=== PATIENT | male | born 1995 | race Caucasian/White ===

== ENCOUNTER 2017-04-07 08:18 | Emergency (ER) | payer SELFPAY ==
--- NOTE | 2017-04-07 08:42 | EDM.PDOC ---
ED HPI GENERAL MEDICAL PROBLEM - General Chief Complaint: Skin Complaint Stated Complaint: SORE IN BETWEEN BUTT CHECK - LEFT Time Seen by Provider: 04/07/17 08:42 Source of Information: Reports: Patient - History of Present Illness INITIAL COMMENTS - FREE TEXT/NARRATIVE: HISTORY AND PHYSICAL: History of present illness: []Patient presents with perirectal abscess on the left buttock, lesion was draining on its own on arrival, no fever nausea vomiting chills sweats Review of systems: As per history of present illness and below otherwise all systems reviewed and negative. Past medical history: As per history of present illness and as reviewed below otherwise noncontributory. Surgical history: As per history of present illness and as reviewed below otherwise noncontributory. Social history: No reported history of drug or alcohol abuse. Family history: As per history of present illness and as reviewed below otherwise noncontributory. Physical exam: HEENT: Atraumatic, normocephalic, pupils reactive, negative for conjunctival pallor or scleral icterus, mucous membranes moist, throat clear, neck supple, nontender, trachea midline. Lungs: Clear to auscultation, breath sounds equal bilaterally, chest nontender. Heart: S1S2, regular, negative for clicks, rubs, or JVD. Abdomen: Soft, nondistended, nontender. Negative for masses or hepatosplenomegaly. Negative for costovertebral tenderness. Pelvis: Stable nontender. Genitourinary: Deferred. Rectal: No mass scarred lesion on the external exam on the left buttock there is a perirectal abscess with auto drainage, wound culture obtained Extremities: Atraumatic, negative for cords or calf pain. Neurovascular unremarkable. Neuro: Awake, alert, oriented. Cranial nerves II through XII unremarkable. Cerebellum unremarkable. Motor and sensory unremarkable throughout. Exam nonfocal. Diagnostics: []Wound culture to follow Therapeutics: []Morphine 2 mg IV Lidocaine I&D Flushed with saline Packed with iodoform Bactrim double strength by mouth twice a day #20 no refill Return if fever nausea vomiting chills sweats despite antibiotics Follow-up for repeat packing in 48 hours either with primary care through the emergency room Impression: []Abscess post I&D Definitive disposition and diagnosis as appropriate pending reevaluation and review of above. left buttocks Pain Score (Numeric/FACES): 5 - Related Data Allergies Allergy/AdvReac Type Severity Reaction Status Date / Time No Known Allergies Allergy Verified 04/07/17 08:28 Home Meds: Home Meds . [No Known Home Meds] 04/07/17 [History] Past Medical History - Past Health History Medical/Surgical History: Denies Medical/Surgical History Social & Family History - Family History Family Medical History: Noncontributory - Tobacco Use Smoking Status *Q: Never Smoker - Caffeine Use Caffeine Use: Reports: Coffee, Energy Drinks, Soda, Tea - Recreational Drug Use Recreational Drug Use: No ED ROS GENERAL - Review of Systems Review Of Systems: ROS reveals no pertinent complaints other than HPI. ED EXAM, SKIN/RASH Exam: See Below Course - Vital Signs Last Recorded V/S: Last Vital Signs Temp 36.3 C 04/07/17 08:28 Pulse 115 H 04/07/17 08:28 Resp 18 04/07/17 08:28 BP 148/63 H 04/07/17 08:28 Pulse Ox 95 04/07/17 08:28 - Orders/Labs/Meds Meds: Medications Discontinued Medications Generic Name Dose Route Start Last Admin Trade Name [place] PRKatarina Reason Stop Dose Admin Lidocaine HCl 20 ml 04/07/17 08:48 04/07/17 09:08 Xylocaine 1% INJECT 04/07/17 08:49 20 ml ONETIME ONE Administration Morphine Sulfate 2 mg 04/07/17 08:48 04/07/17 09:04 Morphine IVPUSH 04/07/17 08:49 2 mg ONETIME ONE Administration Departure - Departure Time of Disposition: 09:35 Disposition: Home, Self-Care 01 Condition: Good Clinical Impression: Abscess - Discharge Information Forms: ED Department Discharge Additional Instructions: Medications as prescribed Keep area clean and dry Return to ER if fever nausea vomiting chills sweats despite antibiotics Follow-up with primary care or ER for repacking and flushing wound in 48 hours The following information is given to patients seen in the emergency department who are being discharged to home. This information is to outline your options for follow-up care. We provide all patients seen in our emergency department with a follow-up referral. The need for follow-up, as well as the timing and circumstances, are variable depending upon the specifics of your emergency department visit. If you don't have a primary care physician on staff, we will provide you with a referral. We always advise you to contact your personal physician following an emergency department visit to inform them of the circumstance of the visit and for follow-up with them and/or the need for any referrals to a consulting specialist. The emergency department will also refer you to a specialist when appropriate. This referral assures that you have the opportunity for follow-up care with a specialist. All of these measure are taken in an effort to provide you with optimal care, which includes your follow-up. Under all circumstances we always encourage you to contact your private physician who remains a resource for coordinating your care. When calling for follow-up care, please make the office aware that this follow-up is from your recent emergency room visit. If for any reason you are refused follow-up, please contact the [facility] emergency department at and asked to speak to the emergency department charge nurse.
[2017-04-07] MEDS ORDERED: Morphine 2 MG/ML Syringe IVPUSH ONE (08:48)
[2017-04-07] MEDS ORDERED: Lidocaine 1% 20 ML MDV INJECT ONE (08:48)
[2017-04-07 10:01] VITALS: BP 147/83
== END 2017-04-07 09:58 | disposition home or self-care (01) ==
LOC: MW.ED 08:18
DX: L02.31 Cutaneous abscess of buttock (principal)
CPT/HCPCS: 87070; 96374; 99283; J2270; 99282

== ENCOUNTER 2017-04-09 13:46 | Emergency (ER) | payer SELFPAY ==
[2017-04-09] MEDS ORDERED: Bacitracin Oint 1 GM U/D Packet TOP ONE (14:34)
--- NOTE | 2017-04-09 14:34 | EDM.PDOC ---
ED HPI GENERAL MEDICAL PROBLEM - General Chief Complaint: Wound Recheck Stated Complaint: REPACK SORE Time Seen by Provider: 04/09/17 14:33 - History of Present Illness INITIAL COMMENTS - FREE TEXT/NARRATIVE: HISTORY AND PHYSICAL: History of present illness: Patient's 21-year-old white male presents with a concern of recent incision and drainage for a buttock abscess there's been no fever chills nausea vomiting or other complaints Review of systems: As per history of present illness and below otherwise all systems reviewed and negative. Past medical history: As per history of present illness and as reviewed below otherwise noncontributory. Surgical history: As per history of present illness and as reviewed below otherwise noncontributory. Social history: No reported history of drug or alcohol abuse. Family history: As per history of present illness and as reviewed below otherwise noncontributory. Physical exam: HEENT: Atraumatic, normocephalic, pupils reactive, negative for conjunctival pallor or scleral icterus, mucous membranes moist, throat clear, neck supple, nontender, trachea midline. Lungs: Clear to auscultation, breath sounds equal bilaterally, chest nontender. Heart: S1S2, regular, negative for clicks, rubs, or JVD. Abdomen: Soft, nondistended, nontender. Negative for masses or hepatosplenomegaly. Negative for costovertebral tenderness. Pelvis: Stable nontender. Genitourinary: Deferred. Rectal: Patient noted to have packing in place to a buttock abscess that involves the right buttock there is no significant induration and erythema is improved significantly packing was removed there is no residual drainage patient tolerated removal well Extremities: Atraumatic, negative for cords or calf pain. Neurovascular unremarkable. Neuro: Awake, alert, oriented. Cranial nerves II through XII unremarkable. Cerebellum unremarkable. Motor and sensory unremarkable throughout. Exam nonfocal. Diagnostics: None Therapeutics: None Impression: #1 wound recheck history of incision and drainage with packing Definitive disposition and diagnosis as appropriate pending reevaluation and review of above. Coccyx Pain Score (Numeric/FACES): 5 - Related Data Allergies Allergy/AdvReac Type Severity Reaction Status Date / Time No Known Allergies Allergy Verified 04/09/17 14:07 Home Meds: Home Meds . [No Known Home Meds] 04/07/17 [History] Past Medical History - Past Health History Medical/Surgical History: Denies Medical/Surgical History Social & Family History - Family History Family Medical History: Noncontributory - Tobacco Use Smoking Status *Q: Never Smoker - Caffeine Use Caffeine Use: Reports: Coffee, Energy Drinks, Soda, Tea - Recreational Drug Use Recreational Drug Use: No ED ROS GENERAL - Review of Systems Review Of Systems: ROS reveals no pertinent complaints other than HPI. ED EXAM, GENERAL - Physical Exam Exam: See Below (See dictation) Course - Vital Signs Last Recorded V/S: Last Vital Signs Temp 36.7 C 04/09/17 14:07 Pulse 95 04/09/17 14:07 Resp 18 04/09/17 14:07 BP 139/50 L 04/09/17 14:07 Pulse Ox 94 L 04/09/17 14:07 Departure - Departure Time of Disposition: 14:33 Disposition: Home, Self-Care 01 Condition: Good Clinical Impression: Encounter for wound re-check - Discharge Information Forms: ED Department Discharge Additional Instructions: The following information is given to patients seen in the emergency department who are being discharged to home. This information is to outline your options for follow-up care. We provide all patients seen in our emergency department with a follow-up referral. The need for follow-up, as well as the timing and circumstances, are variable depending upon the specifics of your emergency department visit. If you don't have a primary care physician on staff, we will provide you with a referral. We always advise you to contact your personal physician following an emergency department visit to inform them of the circumstance of the visit and for follow-up with them and/or the need for any referrals to a consulting specialist. The emergency department will also refer you to a specialist when appropriate. This referral assures that you have the opportunity for followup care with a specialist. All of these measure are taken in an effort to provide you with optimal care, which includes your followup. Under all circumstances we always encourage you to contact your private physician who remains a resource for coordinating your care. When calling for followup care, please make the office aware that this follow-up is from your recent emergency room visit. If for any reason you are refused follow-up, please contact the [facility] emergency department at and asked to speak to the emergency department charge nurse. Follow-up primary medical doctor wanted today's return as needed as discussed
[2017-04-09 18:21] VITALS: BP 132/71
== END 2017-04-09 14:47 | disposition home or self-care (01) ==
LOC: MW.ED 13:46
DX: Z48.817 Encounter for surgical aftercare following surgery on the skin and subcutaneous tissue (principal)
CPT/HCPCS: 99282; 99283